=== PATIENT | male | born 1980 | race African-American/Black ===

== ENCOUNTER 2021-07-19 22:08 | Emergency (ER) | payer OTHER, SELFPAY ==
[2021-07-20 17:24] LABS: SARS-CoV-2 PCR by NAA Not Detected (NotDetected)
== END 2021-07-19 22:48 | disposition home or self-care (01) ==
LOC: BURERS 22:08
DX: I10 Essential (primary) hypertension (principal); Z20.822 Contact with and (suspected) exposure to COVID-19; Z79.84 Long term (current) use of oral hypoglycemic drugs; M19.90 Unspecified osteoarthritis, unspecified site; D64.9 Anemia, unspecified; Z86.16 Personal history of COVID-19; E11.9 Type 2 diabetes mellitus without complications; F17.210 Nicotine dependence, cigarettes, uncomplicated
CPT/HCPCS: 87804; 99283; U0003; U0005

== ENCOUNTER 2021-11-27 11:16 | Emergency (ER) | payer OTHER, SELFPAY ==
[2021-11-27] MEDS ORDERED: Iopamidol 370 76% 100 ML VIAL FS ONE (11:17)
[2021-11-27] MEDS ORDERED: Nitroglycerin 2% Ointment 1 INCH/1 GM Packet ONE (13:23)
[2021-11-27] MEDS ORDERED: Furosemide 40 MG/4 ML VIAL ONE (13:23)
[2021-11-27] MEDS ORDERED: Aspirin Chewable 81 MG TAB ONE (13:23)
== END 2021-11-27 14:55 | disposition short-term general hospital (02) ==
LOC: BURERS 11:16
DX: I21.4 Non-ST elevation (NSTEMI) myocardial infarction (principal); I50.9 Heart failure, unspecified; D64.9 Anemia, unspecified; M19.90 Unspecified osteoarthritis, unspecified site; E11.9 Type 2 diabetes mellitus without complications; F17.210 Nicotine dependence, cigarettes, uncomplicated; Z20.822 Contact with and (suspected) exposure to COVID-19; Z79.84 Long term (current) use of oral hypoglycemic drugs
CPT/HCPCS: 36415; 71275; 80053; 80306; 81003; 81015; 82553; 83605; 83690; 83880; 84484; 85025; 87040; 87804; 93005; 94760; 96374; J1940; Q9967; U0002